=== PATIENT | female | born 2000 | race American Indian/Alaskan Native ===

== ENCOUNTER 2018-09-13 21:46 | Emergency (ER) | payer MEDICAID, OTHER ==
[2018-09-13 22:08] VITALS: BP 146/80
[2018-09-13] MEDS ORDERED: NACL 0.9% 1000 ML 1,000 ML IV ONE (22:08)
[2018-09-13 22:59] LABS: Basophils % (Auto) 0.3 % (0.0-1.8); Eosinophils # (Auto) 0.1 K/mm3 (0.0-0.4); Eosinophils % (Auto) 1.5 % (0.0-4.3); Hematocrit 41.1 % (30.3-42.9); Lymphocytes # (Auto) 0.9 K/mm3 (1.2-5.4); Lymphocytes % (Auto) 16.8 % (13.4-35.0); Mean Corpuscular HGB Conc 34 % (30-34); Mean Corpuscular Volume 88 fl (79-97); Monocytes # (Auto) 0.4 K/mm3 (0.0-0.8); Monocytes % (Auto) 7.9 % (0.0-7.3); Platelet Count 297 K/mm3 (140-440); Red Blood Count 4.67 M/mm3 (3.65-5.03); Red Cell Distribution Width 13.7 % (13.2-15.2)
[2018-09-13 23:05] LABS: Bilirubin,Urine NEG (Negative); Blood,Urine NEG (Negative); Color,Urine Amber (Yellow); Mucus,Urine 3+ /HPF
--- NOTE | 2018-09-13 23:08 | Emergency Department Report ---
ED Abdominal Pain HPI - General Chief Complaint: Abdominal Pain Stated Complaint: ABDOMINAL PAIN Source: patient Mode of arrival: Ambulatory Limitations: No Limitations - History of Present Illness Initial Comments: This is a 18-year-old after [place] female presents with lower abdominal pain that started last night. Patient reports an episode of vomiting which she forced herself. Patient states "I feel nauseated all the time". Last menstrual period 08/31/2018. She had a bowel movement a few hours ago which was all liquid. She is now complaining of diffuse abdominal cramping that is constant. She denies vaginal discharge, vaginal bleeding, fever, chest pain, shortness of breath, frequency, urgency, or dysuria. MD Complaint: abdominal pain -: Last night Location: diffuse Radiation: none Migration to: no migration Severity: mild Severity scale (0 -10): 4 Quality: cramping Consistency: intermittent Improves With: nothing Worsens With: nothing Associated Symptoms: nausea, vomiting, diarrhea. denies: fever, chills, constipation, dysuria, hematemesis, hematochezia, melena, hematuria, anorexia, syncope - Related Data LMP Date: 08/31/18 Previous Rx's Medication Instructions Recorded Last Taken Type Docusate Sodium [Colace CAP] 100 mg PO BID PRN #28 capsule 09/14/18 Unknown Rx Ondansetron [Zofran Odt] 4 mg PO Q8HR PRN #12 tab.rapdis 09/14/18 Unknown Rx Polyethylene Glycol 3350 [Miralax] 119 gm PO BID #10 powder 09/14/18 Unknown Rx Allergies Allergy/AdvReac Type Severity Reaction Status Date / Time No Known Allergies Allergy Unverified 10/04/13 18:05 ED Review of Systems ROS: Stated complaint: ABDOMINAL PAIN Other details as noted in HPI Constitutional: denies: chills, fever Respiratory: denies: cough, shortness of breath, wheezing Cardiovascular: denies: chest pain, palpitations Gastrointestinal: abdominal pain, nausea, vomiting. denies: diarrhea Neurological: denies: headache, weakness, paresthesias Psychiatric: denies: anxiety, depression ED Past Medical Hx - Past Medical History Previous Medical History?: No Hx Psychiatric Treatment: No - Surgical History Past Surgical History?: No - Social History Smoking Status: Never Smoker Substance Use Type: None - Medications Home Medications: Home Medications Medication Instructions Recorded Confirmed Last Taken Type Docusate Sodium [Colace CAP] 100 mg PO BID PRN #28 capsule 09/14/18 Unknown Rx Ondansetron [Zofran Odt] 4 mg PO Q8HR PRN #12 tab.rapdis 09/14/18 Unknown Rx Polyethylene Glycol 3350 [Miralax] 119 gm PO BID #10 powder 09/14/18 Unknown Rx ED Physical Exam - General Limitations: No Limitations General appearance: alert, in no apparent distress, obese - Respiratory Respiratory exam: Present: normal lung sounds bilaterally. Absent: respiratory distress - Cardiovascular Cardiovascular Exam: Present: regular rate, normal rhythm. Absent: systolic murmur, diastolic murmur, rubs, gallop - GI/Abdominal GI/Abdominal exam: Present: soft, tenderness (right upper quadrant and right lower quadrant tenderness), normal bowel sounds. Absent: distended, guarding, rebound, rigid, organomegaly, mass - Neurological Exam Neurological exam: Present: alert, oriented X3 - Psychiatric Psychiatric exam: Present: normal affect, normal mood - Skin Skin exam: Present: warm, dry, intact, normal color. Absent: rash ED Course Vital Signs 09/13/18 22:03 Temperature 99.6 F Pulse Rate 106 H Respiratory 16 Rate Blood Pressure 146/80 O2 Sat by Pulse 100 Oximetry ED Medical Decision Making - Lab Data Result diagrams: 09/13/18 22:19 09/13/18 22:19 Lab Results 09/13/18 09/13/18 09/13/18 Range/Units 22:19 22:19 22:19 WBC 5.4 (4.5-11.0) K/mm3 RBC 4.67 (3.65-5.03) M/mm3 Hgb 14.0 (10.1-14.3) gm/dl Hct 41.1 (30.3-42.9) % MCV 88 (79-97) fl MCH 30 (28-32) pg MCHC 34 (30-34) % RDW 13.7 (13.2-15.2) % Plt Count 297 (140-440) K/mm3 Lymph % (Auto) 16.8 (13.4-35.0) % Clarke % (Auto) 7.9 H (0.0-7.3) % Eos % (Auto) 1.5 (0.0-4.3) % Baso % (Auto) 0.3 (0.0-1.8) % Lymph # 0.9 L (1.2-5.4) K/mm3 Clarke # 0.4 (0.0-0.8) K/mm3 Eos # 0.1 (0.0-0.4) K/mm3 Baso # 0.0 (0.0-0.1) K/mm3 Seg Neutrophils % 73.5 H (40.0-70.0) % Seg Neutrophils # 4.0 (1.8-7.7) K/mm3 Sodium 136 L (137-145) mmol/L Potassium 3.7 (3.6-5.0) mmol/L Chloride 99.3 (98-107) mmol/L Carbon Dioxide 26 (22-30) mmol/L Anion Gap 14 mmol/L BUN 6 L (7-17) mg/dL Creatinine 0.7 (0.7-1.2) mg/dL Estimated GFR > 60 ml/min BUN/Creatinine Ratio 9 % Glucose 94 (65-100) mg/dL Calcium 9.5 (8.4-10.2) mg/dL Total Bilirubin 0.50 (0.1-1.2) mg/dL AST 11 (5-40) units/L ALT 8 (7-56) units/L Alkaline Phosphatase 93 (35-129) units/L Total Protein 8.0 (6.3-8.2) g/dL Albumin 4.5 (3.9-5) g/dL Albumin/Globulin Ratio 1.3 % Lipase 14 (13-60) units/L Urine Color Livia (Yellow) Urine Turbidity Slightly-cloudy (Clear) Urine pH 5.0 (5.0-7.0) Ur Specific [place] 1.032 H (1.003-1.030) Urine Protein 30 mg/dl (Negative) mg/dL Urine Glucose (UA) Neg (Negative) mg/dL Urine Ketones Tr (Negative) mg/dL Urine Blood Neg (Negative) Urine Nitrite Neg (Negative) Urine Bilirubin Neg (Negative) Urine Urobilinogen 4.0 (<2.0) mg/dL Ur Leukocyte Esterase Mod (Negative) Urine WBC (Auto) 17.0 H (0.0-6.0) /HPF Urine RBC (Auto) 6.0 (0.0-6.0) /HPF U Epithel Cells (Auto) 14.0 H (0-13.0) /HPF Urine Mucus 3+ /HPF Urine HCG, Qual (Negative) 09/13/18 Range/Units 22:19 WBC (4.5-11.0) K/mm3 RBC (3.65-5.03) M/mm3 Hgb (10.1-14.3) gm/dl Hct (30.3-42.9) % MCV (79-97) fl MCH (28-32) pg MCHC (30-34) % RDW (13.2-15.2) % Plt Count (140-440) K/mm3 Lymph % (Auto) (13.4-35.0) % Clarke % (Auto) (0.0-7.3) % Eos % (Auto) (0.0-4.3) % Baso % (Auto) (0.0-1.8) % Lymph # (1.2-5.4) K/mm3 Clarke # (0.0-0.8) K/mm3 Eos # (0.0-0.4) K/mm3 Baso # (0.0-0.1) K/mm3 Seg Neutrophils % (40.0-70.0) % Seg Neutrophils # (1.8-7.7) K/mm3 Sodium (137-145) mmol/L Potassium (3.6-5.0) mmol/L Chloride (98-107) mmol/L Carbon Dioxide (22-30) mmol/L Anion Gap mmol/L BUN (7-17) mg/dL Creatinine (0.7-1.2) mg/dL Estimated GFR ml/min BUN/Creatinine Ratio % Glucose (65-100) mg/dL Calcium (8.4-10.2) mg/dL Total Bilirubin (0.1-1.2) mg/dL AST (5-40) units/L ALT (7-56) units/L Alkaline Phosphatase (35-129) units/L Total Protein (6.3-8.2) g/dL Albumin (3.9-5) g/dL Albumin/Globulin Ratio % Lipase (13-60) units/L Urine Color (Yellow) Urine Turbidity (Clear) Urine pH (5.0-7.0) Ur Specific [place] (1.003-1.030) Urine Protein (Negative) mg/dL Urine Glucose (UA) (Negative) mg/dL Urine Ketones (Negative) mg/dL Urine Blood (Negative) Urine Nitrite (Negative) Urine Bilirubin (Negative) Urine Urobilinogen (<2.0) mg/dL Ur Leukocyte Esterase (Negative) Urine WBC (Auto) (0.0-6.0) /HPF Urine RBC (Auto) (0.0-6.0) /HPF U Epithel Cells (Auto) (0-13.0) /HPF Urine Mucus /HPF Urine HCG, Qual Negative (Negative) - Radiology Data Radiology results: report reviewed EXAM: CT ABDOMEN PELVIS WO CON HISTORY: RUQ RLQ tenderness COMPARISON: None available. TECHNIQUE: Contiguous axial images were obtained. Additional sagittal and coronal reformatted images were obtained. FINDINGS: Lung bases are clear. No calcified gallstones. Liver, spleen, pancreas and a drenal glands are grossly unremarkable. Spleen measures up to 12 centimeters in axial dimension. No nephrolithiasis or hydronephrosis. No perinephric fat stranding. Aorta and IVC are normal in calibe r. No distal ureteral urinary bladder calculi. Uterus and ovaries are grossly unremarkable. Trace free fluid in the pelvis within physiologic limits. The appendix is normal in caliber measuring 5 millimeters in diameter. No adjacent fat stranding or fluid. Large and small bowel loops normal in caliber. Several fluid-filled small bowel loops. Mild enteritis not excluded. Lumbar vertebral body heights are preserved. Bony pelvis is grossly intact. IMPRESSION: Trace free fluid in the pelvis within physiologic limits. Uterus and ovaries are grossly unremarkable by noncontrast CT. There is several fluid-filled small bowel loops. Mild enteritis is not excluded. Otherwise, large and small bowel loops normal in caliber. The appendix is normal in caliber. No other gross acute findings. - Medical Decision Making This is a 18 y.o. female that presents with vomiting, diarrhea, and abdominal pain that started last night. Patient is stable and was examined by me. Vitals stable. Obtained labs and CT of abdomen and pelvis. CT dictated by radiologist and report reviewed by myself. All labs are unremarkable. Trace free fluid in the pelvis within physiologic limits. Uterus and ovaries are grossly unremarkable by noncontrast CT. There is several fluid-filled small bowel loops. Mild enteritis is not excluded. Otherwise, large and small bowel loops normal in caliber. The appendix is normal in caliber. No other gross acute findings. Start zofran for gastritis. Start miralax and docusate sodium for constipation. Discussed plan with patient and agreed to plan. No further questions noted by the patient. Discharged home in stable condition. Follow up with PCP in 2-3 days. Critical care attestation.: If time is entered above; I have spent that time in minutes in the direct care of this critically ill patient, excluding procedure time. ED Disposition Clinical Impression: Constipation by delayed colonic transit, Nausea alone Gastritis Qualifiers: Gastritis type: other gastritis Chronicity: acute Gastritis bleeding: without bleeding Qualified Code(s): K29.00 - Acute gastritis without bleeding Diarrhea Qualifiers: Diarrhea type: functional diarrhea Qualified Code(s): K59.1 - Functional diarrhea Disposition: TO HOME OR SELFCARE Is pt being admited?: No Does the pt Need Aspirin: No Condition: Stable Instructions: Abdominal Pain (ED), High Fiber Diet (ED), Constipation (ED), Gastroenteritis (ED) Additional Instructions: Increase fiber intake with foods and/or metamucil. Increase water intake and drink or eat prunes. Take colace daily to soften stool. Frequent hand washing is important to reduce spread. Prompt disinfection of contaminated surfaces with household chlorine bleach- based tractor distributor and washing of soiled clothing and bedding should be advised. If food or water is thought to be contaminated, it should be avoided. Increase fluid intake. Drinks high in sugars such as carbonated soft drinks, fruit juice, and highly sugared liquids should be avoided. Prescriptions: Docusate Sodium [Colace CAP] 100 mg PO BID PRN #28 capsule PRN Reason: Constipation Ondansetron [Zofran Odt] 4 mg PO Q8HR PRN #12 tab.rapdis PRN Reason: Nausea And Vomiting Polyethylene Glycol 3350 [Miralax] 119 gm PO BID #10 powder Referrals: PRIMARY CARE, [Primary Care Provider] - 3-5 Days [facility] [Outside] - 3-5 Days [facility] [Outside] - 3-5 Days [facility] [Outside] - 3-5 Days Forms: Work/School Release Form(ED) Time of Disposition: 01:51
[2018-09-13 23:13] LABS: Albumin 4.5 g/dL (3.9-5)
[2018-09-13 23:37] LABS: Alanine Aminotransferase 8 units/L (7-56); BUN/Creatinine Ratio 9; Blood Urea Nitrogen 6 mg/dL (7-17); Calcium 9.5 mg/dL (8.4-10.2); Hemolysis Index 4
[2018-09-14 00:17] LABS: HCG Qualitative,Urine Negative (Negative)
--- NOTE | 2018-09-14 01:30 | Cat Scan Report ---
FINAL REPORT EXAM: CT ABDOMEN PELVIS WO CON HISTORY: RUQ RLQ tenderness COMPARISON: None available. TECHNIQUE: Contiguous axial images were obtained. Additional sagittal and coronal reformatted images were obtained. FINDINGS: Lung bases are clear. No calcified gallstones. Liver, spleen, pancreas and adrenal glands are grossly unremarkable. Spleen measures up to 12 centimeters in axial dimension. No nephrolithiasis or hydrone phrosis. No perinephric fat stranding. Aorta and IVC are normal in caliber. No distal ureteral urinary bladder calculi. Uterus and ovaries are grossly unremarkable. Trace free f luid in the pelvis within physiologic limits. The appendix is normal in caliber measuring 5 millimeters in diameter. No adjacent fat stranding or f luid. Large and small bowel loops normal in caliber. Several fluid-filled small bowel loops. Mild ent eritis not excluded. Lumbar vertebral body heights are preserved. Bony pelvis is grossly intact. IMPRESSION: Trace free fluid in the pelvis within physiologic limits. Uterus and ovaries are grossly unremarkable by noncontrast CT. There is several fluid-filled small bowel loops. Mild enteritis is not excluded. Otherwise, large and small bowel loops normal in caliber. The appendix is normal in caliber. No other gross acute findings.
== END 2018-09-14 02:00 | disposition home or self-care (01) ==
LOC: ED 21:46
DX: K29.00 Acute gastritis without bleeding (principal); K59.1 Functional diarrhea; K59.00 Constipation, unspecified
CPT/HCPCS: 36415; 74176; 80053; 81001; 81025; 83690; 85025